=== PATIENT | male | born 1940 | race Caucasian/White ===

== ENCOUNTER 2019-08-28 09:19 | Outpatient (CLI) | payer MEDICARE, SELFPAY ==
--- NOTE | 2019-08-28 10:30 | NEURO_ITS ---
Patient Number: [id number] Impression: # Complains of left lower extremity cramps and numbness. History of back surgery 5 years ago. 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 # Clinical correlation recommended; Findings suggestive of chronic problem. Nerve Conduction Studies Anti Sensory Summary Table Stim Site NR Peak (ms) P-T Amp (?V) Site1 Site2 Delta-P (ms) Dist (cm) Obed (m/s) Left Sup Fibular Anti Sensory (Ant Lat Mall) 14 cm 3.9 15.1 14 cm Ant Lat Mall 3.9 16.0 41 Right Sup Fibular Anti Sensory (Ant Lat Mall) 14 cm 5.8 9.3 14 cm Ant Lat Mall 5.8 16.0 28 Left Sural Anti Sensory (Lat Mall) Calf 4.6 14.7 Calf Lat Mall 5.7 16.0 35 Right Sural Anti Sensory (Lat Mall) Calf 5.3 13.9 Calf Lat Mall 5.3 16.0 30 Motor Summary Table Stim Site NR Onset (ms) O-P Amp (mV) Site1 Site2 Delta-0 (ms) Dist (cm) Obed (m/s) Left Peroneal Motor (Vastus Med) Ankle 5.3 1.4 Popit Ankle 9.5 38.0 40 Popit 14.8 1.4 Right Peroneal Motor (Vastus Med) Ankle 5.5 2.1 Popit Ankle 10.3 39.0 38 Popit 15.8 1.5 Left Tibial Motor (Abd Kwok Brev) Ankle 5.5 0.3 Knee Ankle 10.4 42.0 40 Knee 15.9 0.2 Right Tibial Motor (Abd Kwok Brev) Ankle 5.8 1.1 Knee Ankle 9.8 41.0 42 Knee 15.6 1.3 F Wave Studies NR F-Lat (ms) L-R F-Lat (ms) Left Peroneal (Mrkrs) (EDB) 47.07 0.35 Right Peroneal (Mrkrs) (EDB) 46.72 0.35 Left Tibial (Mrkrs) (Abd Hallucis) 46.88 0.70 Right Tibial (Mrkrs) (Abd Hallucis) 46.18 0.70 EMG Side Muscle Nerve Root Ins Act Fibs Amp Dur Recrt Comment Right AntTibialis Dp Br Fibular L4-5 Nml Nml Nml >12ms Reduced Right Gastroc Tibial S1-2 Nml Nml Nml >12ms Reduced Right Fibularis Long Sup Br Fibular L5-S1 Nml Nml Nml Nml Nml Right Flex Dig Long Tibial L5-S2 Nml Nml Nml Nml Nml Right Ext Dig Brev Dp Br Fibular L5, S1 Nml Nml Nml >12ms Reduced Left AntTibialis Dp Br Fibular L4-5 Nml Nml Nml >12ms Reduced Left Gastroc Tibial S1-2 Nml Nml Nml >12ms Reduced Left Fibularis Long Sup Br Fibular L5-S1 Nml Nml Nml >12ms Reduced Left Flex Dig Long Tibial L5-S2 Nml Nml Nml Nml Nml Left Ext Dig Brev Dp Br Fibular L5, S1 Nml Nml Nml >12ms Reduced Right QuadratusFem QuadFemoris L4-5, S1 Nml Nml Nml >12ms Reduced Left QuadratusFem QuadFemoris L4-5, S1 Nml Nml Nml >12ms Reduced MTDD
== END 2019-08-28 09:20 | disposition home or self-care (01) ==
PROVIDERS: PCP Internal Medicine; Visit Provider Internal Medicine
DX: R20.2 Paresthesia of skin (principal); R94.131 Abnormal electromyogram [EMG]
CPT/HCPCS: 95886; 95910

== ENCOUNTER 2020-09-07 10:20 | Outpatient (CLI) | payer MEDICARE, SELFPAY ==
--- NOTE | ~2020-09-07 | XR_ITS ---
[id number] DATE: 09/07/2020 10:40 INDICATION: Left upper rib pain after fall TECHNIQUE: PA chest. 3 views of the left ribs. COMPARISON: 03/25/2012 two-view chest FINDINGS: There is diffuse osteopenia. No recent rib fracture is evident. No bone destruction is detected. There is scoliosis and degenerative spurring of the thoracic and lumbar spine. IMPRESSION: Osteopenia; no apparent recent left rib fracture Reviewed, dictated and finalized at [facility]. Reviewed, dictated and finalized at [facility].
== END 2020-09-07 10:21 | disposition home or self-care (01) ==
LOC: ANHIMG 10:26
PROVIDERS: PCP Internal Medicine; Visit Provider Internal Medicine
DX: R07.81 Pleurodynia (principal); M85.88 Other specified disorders of bone density and structure, other site; M47.815 Spondylosis without myelopathy or radiculopathy, thoracolumbar region
CPT/HCPCS: 71101

== ENCOUNTER 2021-09-13 14:33 | Outpatient (RCR) | payer MEDICARE, SELFPAY ==
[2021-09-13] MEDS: ACETAMINOPHEN 325 MG TABLET 650 MG PO (14:56)
[2021-09-13] MEDS: diphenhydrAMINE HCl CAP 25 MG CAPSULE PO (14:56)
[2021-09-13] MEDS: FAMOTIDINE 20 MG TABLET PO (14:57)
[2021-09-13 14:59] VITALS: BP 149/73; PULSE 62; RESP 18; TEMP 36.4; O2SAT 98
[2021-09-13] MEDS: BEBTELOVIMAB 175 MG/2 ML VIAL IV PUSH (15:19)
[2021-09-13 15:58] VITALS: BP 168/75; PULSE 64; RESP 16; O2SAT 99
== END 2021-09-13 16:00 ==
LOC: AMCINF 14:33
PROVIDERS: PCP Internal Medicine; Referring Provider Internal Medicine; Visit Provider Internal Medicine Hematology & Oncology
DX: U07.1 COVID-19 (principal); I10 Essential (primary) hypertension
CPT/HCPCS: A9270; M0222; Q0222

== ENCOUNTER 2022-03-27 18:56 | Emergency (ER) | payer MEDICARE, SELFPAY ==
[2022-03-27 19:08] VITALS: BP 171/93; PULSE 78; RESP 20; TEMP 36.4; O2SAT 100
--- NOTE | 2022-03-27 20:02 | ED.WOUNDLAC ---
HPI - Wound/Laceration General Chief Complaint: Wound/Laceration Stated Complaint: Right toe cut Time Seen by Provider: 03/27/22 20:02 Source: patient, RN notes reviewed and old records reviewed Mode of arrival: ambulatory Limitations: no limitations History of Present Illness HPI narrative: 82-year-old male presents to the [facility] with complaints of cutting his right 4th toe when he was cutting his toenails. Bleeding was uncontrolled. Patient is not on blood thinners. Last tetanus 7-8 years ago Onset (ago): minute(s) (just prior to arrival) Related Data Home Medications Medication Instructions Recorded Confirmed sildenafil 100 mg tablet mg 03/27/22 Allergies Allergy/AdvReac Type Severity Reaction Status Date / Time No Known Allergies Allergy Verified 02/14/22 10:33 Review of Systems Review of Systems: All systems reviewed & are unremarkable except as noted in HPI and below Constitutional: Constitutional: Reports no additional constitutional complaints Eyes: Eyes: Reports no additional eye complaints ENT: Reports system reviewed and no additional complaints, except as documented Cardiovascular: Cardiovascular: Reports no additional cardiovascular complaints, Denies chest pain and Denies dyspnea Respiratory: Respiratory: Reports no additional respiratory complaints, Denies chest congestion, Denies cough and Denies dyspnea Gastrointestinal: Gastrointestinal: Reports no additional gastrointestinal complaints Musculoskeletal: Musculoskeletal: Reports no additional musculoskeletal complaints Integumentary/Breasts: Skin/Breast: Reports as per HPI Neurologic: Reports system reviewed and no additional complaints, except as documented Psychiatric: Psychiatric: Reports no additional psychiatric complaints Allergic/Immunologic: Allergic/Immunologic: Reports no additional allergic/immunologic complaints ON LICENSE OF [facility] Family History Family History Mother Family history of Alzheimer's disease, Onset Age: 90 Patient's mother is Father Patient's father is Social History Social History Smoking packs per day: 0.5 Smoking cigarettes per day: 10.0 Years smoked: 15 Smoking pack-years: 7.50 Smoking status: Former smoker Second hand tobacco smoke exposure: No Smoking end date: 04/30/71 Alcohol intake: current Lack of Transportation: No Lack of Food: Never True Current Housing: I Have Housing Concerned About Future Housing: No Difficulty Paying Gas/Electric Bills: No Difficulty Paying for Meds: No Currently Unemployed: No Education: High School Diploma/GED Difficulty w/ Childcare or Family Care: No Comments At the time of my signature, I reviewed and agree with the nursing past medical, surgical, social, and family history. There is no relevant family history pertinent to the patient complaint. Exam Const: General: cooperative, healthy appearing, comfortable, no acute distress, well developed, alert and average body habitus Nutritional Appearance: well nourished Orientation/consciousness: patient oriented x3 Limitations: no limitations HENMT: Head: normal to inspection Ears: hearing grossly normal bilaterally Face/Nose/Sinus: Normal external nose present, Normal nares present, Normal nasal mucous membranes and turbinates present and normal facial exam Face and sinus: normal facial exam Mouth: Yes Normal oral and palatal mucosa present, Yes lip normal and Yes moist mucous membranes Throat: posterior oropharynx normal and uvula midline Eyes: General: appearance normal, both eyes and all related structures Alignment and Position: alignment normal Periorbital: periorbital findings normal Conjunctivae: conjunctivae normal Pupils: Equal, round and reactive pupils present EOM: EOMs intact bilaterally Neck: Neck: normal visu
[2022-03-28] MEDS: TETANUS,DIPHTHERIA,AC PERTUSSIS ADULT (0.5 ML) BOOSTRIX IM (12:25)
== END 2022-03-27 20:26 | disposition home or self-care (01) ==
PROVIDERS: Emergency Provider Nurse Practitioner; PCP Internal Medicine
DX: S91.104A Unspecified open wound of right lesser toe(s) without damage to nail, initial encounter (principal); X58.XXXA Exposure to other specified factors, initial encounter; Z23 Encounter for immunization; I10 Essential (primary) hypertension; N40.0 Benign prostatic hyperplasia without lower urinary tract symptoms
CPT/HCPCS: 90471; 90715; 99212; G0463

== ENCOUNTER 2023-04-06 09:31 | Observation (INO) | payer MEDICARE, SELFPAY ==
[2023-04-06] VITALS (34 sets, daily range): BP systolic 99–178; BP diastolic 63–111; PULSE 60–81; RESP 12–20; TEMP 36.2–36.8; O2SAT 96–100; BMI 27.6
--- NOTE | ~2023-04-06 | CT_ITS ---
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 Elevated d-dimer. TECHNIQUE: Computed tomographic angiography (CTA) of the chest was performed with 100 mL Omnipaque-35 0 intravenous contrast. The dose-length product was 404.60 mGy-cm. Maximum intensity projection 3D-re constructions of the aorta and other arteries were constructed by the technologist on a separate work station. Automated exposure control and iterative reconstruction technique were employed. COMPARISON: None. FINDINGS: Mild cardiomegaly. No significant pleural or pericardial effusion. Study is technically ann-marie quate without evidence for pulmonary embolism. Lower lobe subsegmental arteries limited by motion art ifact. Calcified granuloma left lower lobe. No evidence for aortic aneurysm or dissection. There is a therosclerosis. There are multiple liver cysts. There are gallstones. No focal airspace consolidation . No endobronchial lesions. Mild emphysema. Moderate thoracic spondylosis. IMPRESSION: 1. No evidence for pulmonary embolism. No acute cardiopulmonary disease. Reviewed, dictated and finalized at [facility]. BUILDER
--- NOTE | ~2023-04-06 | CT_ITS ---
EXAMINATION: CT brain wo con DATE: 04/06/2023 11:45 INDICATION: Syncope. Weakness. TECHNIQUE: Computed tomography (CT) of the head was performed without intravenous contrast. The dose- length product was 681.00 mGy-cm. Automated exposure control and iterative reconstruction technique w ere employed. COMPARISON: None FINDINGS: Generalized atrophy. There are scattered moderate periventricular and subcortical white mat ter changes, most likely related to small vessel ischemic disease (microangiopathy). There are chroni c bilateral lacunar infarctions of the subinsular white matter. There is intracranial atherosclerosis . No acute infarction, hemorrhage, mass or mass effect. IMPRESSION: 1. No acute intracranial abnormality. 2: Chronic bilateral lacunar infarctions. 3: Chronic age-related findings. Reviewed, dictated and finalized at location [facility]. ICAL PROOFREADER
--- NOTE | ~2023-04-06 | XR_ITS ---
EXAMINATION: XR chest 2V 04/06/2023 11:56 INDICATION: Transient alteration of awareness PROCEDURE: 2 view chest COMPARISON: Comparison to multiple prior studies sequentially, with oldest reviewed study dated 11/07. FINDINGS: The lungs are clear. The cardiomediastinal silhouette is within normal limits. There are no pleural effusions. There is no pneumothorax suspected. There is atherosclerosis of the aorta. Th e lungs are hyperinflated which is consistent with, but not diagnostic of chronic obstructive pulmona ry disease. IMPRESSION: 1: NO ACUTE CARDIOPULMONARY DISEASE. Reviewed, dictated and finalized at location [facility]. RVISOR SHIPFITTERS
--- NOTE | 2023-04-06 09:54 | ECG_ITS ---
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
[2023-04-06 10:30] LABS: Basophils Percent Auto 0.4 % (0.2-1.2); Eosinophils Absolute Auto 0.1 K/mm3 (0-0.3); Eosinophils Percent Auto 0.6 % (0-4.4); Hematocrit 42.3 % (42.0-52.0); Hemoglobin 13.7 g/dL (14.0-18.0); Immature Granulocyte Absolute 0.03 K/mm3 (0.00-0.031); Immature Granulocyte Percent A 0.3 % (0-0.5); Lymphocytes Absolute Auto 0.86 K/mm3 (0.9-3.2); Lymphocytes Percent Auto 9.3 % (18.3-44.2); Mean Corpuscular HGB Conc 32.4 g/dl (32-36); Mean Corpuscular Hemoglobin 29.8 pg (26-34); Mean Corpuscular Volume 92.2 fl (80-100); Mean Platelet Volume 9.3 fl (7.4-10.4); Monocytes Absolute Auto 0.6 K/mm3 (0.1-0.6); Monocytes Percent Auto 6.4 % (2.6-8.5); Neutrophils Absolute Auto 7.7 K/mm3 (1.3-6.7); Platelet Count Result 215 k/mm3 (150-375); Red Blood Count 4.59 M/mm3 (4.6-6.20); White Blood Count 9.3 K/mm3 (4.5-10.0)
[2023-04-06 10:39] LABS: Alanine Aminotransferase 19 U/L (6-50); Albumin Level 4.2 g/dL (3.5-5.1); Alkaline Phosphatase 58 U/L (38-126); Anion Gap 7 mmol/L (8-16); Aspartate Amino Transferase 23 U/L (17-59); Bilirubin,Total 0.8 mg/dL (0.2-1.3); Blood Urea Nitrogen 17 mg/dL (9-20); Calcium 9.1 mg/dL (8.4-10.2); Carbon Dioxide 26 mmol/L (22-30); Chloride 104 mmol/L (98-107); Estimated CRCL calculation 59 ml/min; Estimated Glomerular Filt Rate > 60; Glucose 118 mg/dL (65-110); Sodium 137 mmol/L (137-145)
--- NOTE | 2023-04-06 11:12 | ED.SYNCOPE ---
HPI - Syncope General Chief Complaint: Syncope <Roger Shell APRN - Last Filed: 05/02/23 13:47> Stated Complaint: syncopal episode <Roger Shell APRN - Last Filed: 05/02/23 13:47> Time Seen by Provider: 04/06/23 10:55 <Roger Shell APRN - Last Filed: 05/02/23 13:47> History of Present Illness HPI narrative: 83 y/o male presents after having a near syncopal episode today. patient states he was carrying dishes in the kitchen when his legs felt week and he fell to his knees. patient's states his upper extremities were shaking but he was communicating. ems came to evaluate the patient and he had low bp after walking to the bathroom. patient denied chest pain, sob, dizziness prior or during episode. patient denies hx of heart issues. patient states he has a hx of htn. 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 no other complaints. <Roger Shell APRN - Last Filed: 05/02/23 13:47> Onset (ago): hour(s) (2) <Roger Shell APRN - Last Filed: 05/02/23 13:47> Witnessed: Yes - by Bystander <Roger Shell APRN - Last Filed: 05/02/23 13:47> Injuries sustained associated with event: none <Roger Shell APRN - Last Filed: 05/02/23 13:47> Current symptoms: back to baseline <Roger Shell APRN - Last Filed: 05/02/23 13:47> Related Data Home Medications: Home Medications Medication Instructions Recorded Confirmed sildenafil 100 mg tablet 100 mg PO DAILY PRN Sexual Activity 03/27/22 04/06/23 <Roger Shell APRN - Last Filed: 05/02/23 13:47> Allergies/Adverse Reactions: Allergies Allergy/AdvReac Type Severity Reaction Status Date / Time No Known Allergies Allergy Verified 04/10/23 13:50 <Roger Shell APRN - Last Filed: 05/02/23 13:47> Review of Systems Review of Systems: All systems reviewed & are unremarkable except as noted in HPI and below <Roger GLENNY Shell Last Filed: 05/02/23 13:47> Constitutional: Constitutional: Reports weakness <Roger Shell APRN - Last Filed: 05/02/23 13:47> Neurologic: Reports syncope <Roger Shell APR Last Filed: 05/02/23 13:47> PMFSH Past Medical History Medical History: Medical History (Updated 04/09/23 @ 09:25 by Mohan Flynn MD) Essential (primary) hypertension <Roger Shell APRN Last Filed: 05/02/23 13:47> Family History Family History: Family History Mother Family history of Alzheimer's disease, Onset Age: 90 Patient's mother is Father Patient's father is <Roger Shell APR Last Filed: 05/02/23 13:47> Social History Social History: Social History Smoking packs per day: 0.5 Smoking cigarettes per day: 10.0 Years smoked: 10 Smoking pack-years: 5.00 Smoking status: Former smoker Tobacco type: cigarettes Second hand tobacco smoke exposure: No Smoking end date: 04/30/71 Alcohol intake: current Drinks per week: 3 Substance use: never Do You Feel Safe in your Home?: Yes Lack of Transportation: No Lack of Food: Never True Current Housing: I Have Housing Concerned About Future Housing: No Difficulty Paying Gas/Electric Bills: No Difficulty Paying for Meds: No Currently Unemployed: No Education: High School Diploma/GED Difficulty w/ Childcare or Family Care: No Spiritual care concerns: No <Roger Shell APRN Last Filed: 05/02/23 13:47> Exam Const: General: healthy appearing and no acute distress <Roger Shell APRN Last Filed: 05/02/23 13:47> Nutritional Appearance: well nourished <Roger Shell APRN Last Filed: 05/02/23 13:47> Orientation/consciousness: patient oriented x3 <Roger Shell APRN - Last Filed: 05/02/23 13:47> Limitations: no limitations <Roger Shell APRN - Last Filed: 05/02/23 13:47> HENMT: Head: normal to inspection
[2023-04-06] MEDS: SODIUM CHLORIDE 0.9% IV 1,000 ML 999 ML IV CONT (12:12)
[2023-04-06 12:22] LABS: Magnesium 2.1 mg/dL (1.6-2.3)
[2023-04-06 12:25] LABS: INR 1.1; Prothrombin Time 14.8 Seconds (11.1-14.7)
[2023-04-06 12:26] LABS: Partial Thromboplastin Time 37.2 SECONDS (22.3-36.8)
[2023-04-06 12:35] LABS: NT Pro B Type Natriuretic Pept 1170 pg/mL (19.9-100); Troponin I < 0.012 ng/mL (0.000-0.034)
[2023-04-06 12:40] LABS: Appearance Urine Turbid (Clear); Bacteria Urine None Seen /hpf; Bilirubin Urine 1+ (Negative); Blood Urine Negative (Negative); Color Urine Dark Yellow (Yellow); Glucose Urine UA Negative (Negative); Hyaline Casts Urine Present /lpf; Ketones Urine Trace mg/dL (Negative); Leukocyte Esterase Ur Negative LEU/UL (Negative); Need Manual Microscopic Reviewed; Nitrate Urine Negative (Negative); Protein Urine 1+ mg/dL (Negative); Specific Grav Ur 1.024 (1.001-1.035); Squamous Epithelial Cell Urine Few /hpf (Few); WBC Urine 0-5 /hpf
[2023-04-06 12:46] LABS: D Dimer 0.67 ug/mL (<0.48)
[2023-04-06 12:53] LABS: Add Urine Microscopic? YES
[2023-04-06] MEDS: LACTATED RINGERS 1,000 ML 75 ML IV CONT (14:18)
[2023-04-06 15:38] LABS: Troponin I < 0.012 ng/mL (0.000-0.034)
--- NOTE | 2023-04-06 19:12 | PC.NURSE ---
Report received from MIL Browning. Assumed care of patient at this time.
--- NOTE | 2023-04-06 20:13 | ADMGEN ---
This patient, Will Ramirez, was admitted to Medical Room 247-. Patient/family oriented to hospital policies and general routines including ID bracelet, bed and alarms, visiting hours, pain management, procedures, bathroom and other care routines, personal items, smoking policy, room service/diet, and visiting hours. Information on how to activate the Rapid Response Team has been discussed. Patient/Family are encouraged to report perceived risks to care and to ask questions if they do not understand what they are told or what they should do.
--- NOTE | 2023-04-06 20:23 | PM.IMHP ---
H&P: HPI History of Present Illness Date/Time: 04/06/23 20:23 Chief Complaint: Near-syncope Narrative: This is an 83-year-old male with past medical history significant hypertension. Patient comes to the emergency room after having an episode of bilateral lower extremity weakness and near-syncope when he landed on his knees no loss of consciousness, patient had been in his usual state of health denies any nausea vomiting diarrhea abdominal pain no chest pain no palpitations no headaches no vision changes no cough no sputum production no fevers no rigors no chills no focal weakness no sensorimotor deficit. In emergency room patient was rule out for acute pulmonary embolism and preliminary workup has been essentially nonrevealing. Patient placed in observation. EXAMINATION: CT brain wo con DATE: 04/06/2023 11:45 INDICATION: Syncope. Weakness. TECHNIQUE: Computed tomography (CT) of the head was performed without intravenous contrast. The dose-length product was 681.00 mGy-cm. Automated exposure control and iterative reconstruction technique were employed. COMPARISON: None FINDINGS: Generalized atrophy. There are scattered moderate periventricular and subcortical white matter changes, most likely related to small vessel ischemic disease (microangiopathy). There are chronic bilateral lacunar infarctions of the subinsular white matter. There is intracranial atherosclerosis. No acute infarction, hemorrhage, mass or mass effect. IMPRESSION: 1. No acute intracranial abnormality. 2: Chronic bilateral lacunar infarctions. 3: Chronic age-related findings. EXAMINATION: XR chest 2V 04/06/2023 11:56 INDICATION: Transient alteration of awareness PROCEDURE:? 2 view chest COMPARISON: Comparison to multiple prior studies sequentially, with oldest reviewed study dated? 11/07/2004. FINDINGS: The lungs are clear.? The cardiomediastinal silhouette is within normal limits.? There are no pleural effusions.? There is no pneumothorax suspected.? There is atherosclerosis of the aorta. The lungs are hyperinflated which is consistent with, but not diagnostic of chronic obstructive pulmonary disease. IMPRESSION: 1:? NO ACUTE CARDIOPULMONARY DISEASE. 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 Elevated d-dimer. TECHNIQUE: Computed tomographic angiography (CTA) of the chest was performed with 100 mL Omnipaque-350 intravenous contrast. The dose-length product was 404.60 mGy-cm. Maximum intensity projection 3D-reconstructions of the aorta and other arteries were constructed by the technologist on a separate workstation. Automated exposure control and iterative reconstruction technique were employed. COMPARISON: None. FINDINGS: Mild cardiomegaly. No significant pleural or pericardial effusion. Study is technically adequate without evidence for pulmonary embolism. Lower lobe subsegmental arteries limited by motion artifact. Calcified granuloma left lower lobe. No evidence for aortic aneurysm or dissection. There is atherosclerosis. There are multiple liver cysts. There are gallstones. No focal airspace consolidation. No endobronchial lesions. Mild emphysema. Moderate thoracic spondylosis. IMPRESSION: 1. No evidence for pulmonary embolism. No acute cardiopulmonary disease. Review of Systems Review of Systems: Near-syncope episode Constitutional: Constitutional: Denies chills, Denies fatigue, Denies fever(s), Denies frequent falls, Denies malaise and Denies weakness Eyes: Eyes: Denies change in vision ENT: Denies dysphagia, Denies vertigo, Denies dizziness and Denies odynophagia Cardiovascular: Cardiovascular: Denies chest pain, Denies leg edema, Reports lightheadedness, Denies radiating jaw, neck or arm pain and Denies palpitations Respiratory: Respiratory: Denies cough and Denies excessive phlegm production Gastrointestinal: Gastrointestinal: Denies abdominal pain, Denies dyspepsia, Josue
[2023-04-07] VITALS (12 sets, daily range): BP systolic 148–180; BP diastolic 74–96; PULSE 64–78; RESP 16–18; TEMP 36.4–36.9; O2SAT 96–98
--- NOTE | 2023-04-07 | ECHO_ITS ---
Patient Info Name: Will Ramirez Age: 83 years : 1940 Gender: Male Ht: 67 in Wt: 180 lbs BSA: 1.98 m2 HR: 74 bpm BP: 165 / 74 mmHg Heart Rhythm: Sinus Arrhythmia Technical Quality: Good Exam Date: 04/07/2023 10:13 AM Exam Location: Echo Lab Patient Status: Inpatient Admit Date: 04/06/2023 Staff Ordering Physician: Tera Villatoro MD Hat Forming Machine Feeder: Sharifa Mayberry RDCS Attending Provider: Mariza Lerner MD Referring Physician: Irving JERNIGAN; Exam Type: CA echo doppler color flow Study Info Indications - NEAR SYNCOPE Complete two-dimensional, color flow and Doppler transthoracic echocardiogram is performed. Summary 1. Complete two-dimensional, color flow and Doppler transthoracic echocardiogram is performed. Recommendations * Borderline LV enlargement, mild LVH, borderline LV systolic function, ejection fraction about 50%. Diastolic dysfunction is present. Mild biatrial enlargement. Normal mitral valve structure, mild MR. Aortic valve is not well visualized, appears mildly calcified, moderate aortic stenosis by Doppler, maximum velocity 2.2 m/sec, mean gradient 16 mmHg, LYNETTE 1.2 cm2. Mild aortic regurgitation. Trace TR, RVSP 22 mmHg. May consider further assessment of aortic valve stenosis if clinically appropriate. Left Ventricle Left ventricular chamber dimension is mildly enlarged. Left ventricular systolic function is mildly reduced, estimated at 45-50%. There is mildly increased left ventricular wall thickness. The left ventricular diastolic function is abnormal. E/e' 20.9 is elevated. Right Ventricle Right ventricular chamber dimension is normal. Right ventricular systolic function is normal. Left Atria Left atrial chamber dimension is mildly enlarged. Right Atria Right atrial chamber dimension is mildly enlarged. Aortic Valve The aortic valve is not well visualized. There is mild aortic valve sclerosis. There is mild aortic valve regurgitation. There is mild aortic valve calcification. Pulmonic Valve The pulmonic valve is normal. Mitral Valve The mitral valve has normal leaflets. There is mild mitral valve regurgitation. Tricuspid Valve The tricuspid valve leaflets are normal. There is trace tricuspid valve regurgitation. Pericardium/Pleural The pericardium appears epicardial fat pad. There is no pericardial effusion. Inferior Vena Cava Normal inferior vena cava with >50% collapse upon inspiration consistent with normal right atrial pressure, 10 mmHg. Aorta The aortic root size at the sinus of Valsalva is normal. Left Ventricular Outflow Tract Name Value Normal LVOT 2D LVOT Diameter 2.0 cm LVOT Doppler LVOT Peak Gradient 1 mmHg LVOT Mean Gradient 1 mmHg LVOT VTI 18 cm LVOT VTI/AV VTI Ratio 0.3 LVOT Stroke Volume 60 ml LVOT CO 2.8 l/min LVOT CI 1.4 l/min/m2 Pulmonic Valve Name Value Normal
[2023-04-07 05:51] LABS: Basophils Absolute Auto 0.1 K/mm3 (0.0-0.1); Basophils Percent Auto 0.6 % (0.2-1.2); Eosinophils Absolute Auto 0.1 K/mm3 (0-0.3); Eosinophils Percent Auto 0.9 % (0-4.4); Hematocrit 38.6 % (42.0-52.0); Hemoglobin 12.7 g/dL (14.0-18.0); Immature Granulocyte Absolute 0.03 K/mm3 (0.00-0.031); Immature Granulocyte Percent A 0.3 % (0-0.5); Lymphocytes Absolute Auto 1.53 K/mm3 (0.9-3.2); Lymphocytes Percent Auto 17.5 % (18.3-44.2); Mean Corpuscular HGB Conc 32.9 g/dl (32-36); Mean Corpuscular Hemoglobin 30.1 pg (26-34); Mean Corpuscular Volume 91.5 fl (80-100); Mean Platelet Volume 9.9 fl (7.4-10.4); Monocytes Absolute Auto 0.8 K/mm3 (0.1-0.6); Monocytes Percent Auto 8.6 % (2.6-8.5); Neutrophils Absolute Auto 6.3 K/mm3 (1.3-6.7); Neutrophils Percent Auto 72.1 % (45.5-73.1); Platelet Count Result 207 k/mm3 (150-375); Red Blood Count 4.22 M/mm3 (4.6-6.20); Red Cell Distribution Width 13.8 % (11.5-14.5); White Blood Count 8.7 K/mm3 (4.5-10.0)
[2023-04-07 06:10] LABS: Anion Gap 6 mmol/L (8-16); Blood Urea Nitrogen 12 mg/dL (9-20); Calcium 8.5 mg/dL (8.4-10.2); Carbon Dioxide 25 mmol/L (22-30); Chloride 105 mmol/L (98-107); Estimated CRCL calculation 67 ml/min; Estimated Glomerular Filt Rate > 60; Glucose 96 mg/dL (65-110); Potassium 3.6 mmol/L (3.4-5.0); Sodium 136 mmol/L (137-145)
[2023-04-07] MEDS: atenoloL 50 MG TABLET PO (09:20)
[2023-04-07] MEDS: ENOXAPARIN 40 MG/0.4 ML SYRINGE SUB-Q (09:21)
[2023-04-07] MEDS: TERAZOSIN HCL 5 MG CAPSULE 10 MG PO (09:21)
[2023-04-07] MEDS: DUTASTERIDE 0.5 MG CAPSULE PO (09:21)
--- NOTE | 2023-04-07 14:25 | PM.IMPN ---
Progress Note: A&P Assessment and Plan (1) Near syncope: Code(s): R55 - Syncope and collapse Status: Acute Assessment and Plan: CT brain was negative CXR showed possible COPD, but no acute process. CTA PE protocol was negative. ECHO was abnormal, cardiology consulted for input and recommendations appreciated. continue tele (2) Neuropathy: Code(s): G62.9 - Polyneuropathy, unspecified Status: Chronic Assessment and Plan: Unchanged (3) Essential hypertension: Code(s): I10 - Essential (primary) hypertension Status: Chronic Assessment and Plan: Continue atenolol have been elevated, hydralazine 10 mg IV Q8 prn as needed (4) Low vitamin B12 level: Code(s): E53.8 - Deficiency of other specified B group vitamins Status: Acute Assessment and Plan: Follow-up in outpatient setting (5) Malignant neoplasm of bladder, unspecified: Code(s): C67.9 - Malignant neoplasm of bladder, unspecified Status: Acute Assessment and Plan: Follow-up in outpatient setting Subjective Date/time seen: 04/07/23 14:25 Interval history: Patient is an 83 YO male with PMH significant for hypertension. Patient admitted from the emergency room after having an episode of bilateral lower extremity weakness and near-syncope when he landed on his knees with no loss of consciousness. He was carrying a bowl of cereal into the kitchen. There was no precipitating event or symptoms. He did not take his Viagra . Patient has been in his usual state of health, denies any nausea/vomiting/diarrhea or abdominal pain. No chest pain, palpitations, headaches, vision changes or viral symptoms. He does not check his BP at home. CT brain was negative, CXR showed possible COPD, but no acute process. CTA PE protocol was negative. ECHO was abnormal, cardiology consulted for input and recommendations appreciated. BP's have been elevated since admission, will continue to monitor. Exam Narrative: GENERAL: Well nourished, no acute distress, appears stated age. HEAD: Normocephalic, atraumatic. EYES: PERRLA and EOMI. NECK: Supple. LUNGS: Clear to auscultation bilaterally. No respiratory distress. HEART: RRR, no murmurs. ABDOMEN: Soft, nontender, nondistended. Non-tender to palpation. EXTREMITIES: No edema. SKIN: Warm, dry, no rash. NEURO: A&O x3, no cranial defects. PSYCH: Normal mood and affect. Pleasant & cooperative. Objective Data Vital Signs Vital Signs: Vital Signs - 24 hr 04/06/23 14:46 04/06/23 15:16 04/06/23 15:31 Temperature 98.3 F 98.0 F Pulse Rate 67 66 67 Respiratory Rate 14 16 13 Blood Pressure 151/71 H 155/82 H 169/75 H Pulse Oximetry 100 100 98 Oxygen Delivery 04/06/23 16:16 04/06/23 16:46 04/06/23 17:01 Temperature 97.9 F 98.0 F Pulse Rate 60 64 67 Respiratory Rate 14 14 16 Blood Pressure 173/85 H 162/78 H 153/86 H Pulse Oximetry 100 98 98 Oxygen Delivery 04/06/23 17:31 04/06/23 17:46 04/06/23 18:17 Temperature Pulse Rate 64 64 63 Respiratory Rate 16 13 15 Blood Pressure 176/74 H 163/83 H 161/80 H Pulse Oximetry 99 98 99 Oxygen Delivery 04/06/23 18:30 04/06/23 18:31 04/06/23 18:48 Temperature Pulse Rate 66 67 67 Respiratory Rate 14 16 12 Blood Pressure 170/79 H Pulse Oximetry 98 Oxygen Delivery 04/06/23 19:04 04/06/23 19:16 04/06/23 19:20 Temperature Pulse Rate 66 66 66 Respiratory Rate 12 13 14 Blood Pressure 158/81 H Pulse Oximetry Oxygen Delivery 04/06/23 19:30 04/06/23 19:31 04/06/23 19:45 Temperature Pulse Rate 66 65 68 Respiratory Rate 15 15 14 Blood Pressure 166/83 H 166/83 H Pulse Oximetry 98 Oxygen Delivery 04/06/23 20:50 04/06/23 20:50 04/06/23 20:51 Temperature 98.0 F Pulse Rate 65 72 Respiratory Rate 18 Blood Pressure 178/68 H 168/63 H Pulse Oximetry 99 Oxygen Delivery 04/06/23 20:51 04/06/23 20:12 04/06/23 20:30
[2023-04-07] MEDS: hydrALAZINE HCL 20 MG/ML VIAL 10 MG IV PUSH (18:53)
[2023-04-08] VITALS (12 sets, daily range): BP systolic 132–190; BP diastolic 73–100; PULSE 64–78; RESP 16–18; TEMP 36.5–36.9; O2SAT 97–99
[2023-04-08 08:18] LABS: Hematocrit 41.2 % (42.0-52.0); Hemoglobin 13.5 g/dL (14.0-18.0); Mean Corpuscular HGB Conc 32.8 g/dl (32-36); Mean Corpuscular Hemoglobin 29.9 pg (26-34); Mean Corpuscular Volume 91.2 fl (80-100); Mean Platelet Volume 9.8 fl (7.4-10.4); Platelet Count Result 217 k/mm3 (150-375); Red Blood Count 4.52 M/mm3 (4.6-6.20); White Blood Count 8.3 K/mm3 (4.5-10.0)
[2023-04-08] MEDS: atenoloL 50 MG TABLET PO (08:27)
[2023-04-08] MEDS: DUTASTERIDE 0.5 MG CAPSULE PO (08:27)
[2023-04-08] MEDS: TERAZOSIN HCL 5 MG CAPSULE 10 MG PO (08:27)
[2023-04-08] MEDS: ENOXAPARIN 40 MG/0.4 ML SYRINGE SUB-Q (08:27)
[2023-04-08 08:31] LABS: Anion Gap 8 mmol/L (8-16); Blood Urea Nitrogen 14 mg/dL (9-20); Carbon Dioxide 25 mmol/L (22-30); Chloride 104 mmol/L (98-107); Estimated CRCL calculation 67 ml/min; Estimated Glomerular Filt Rate > 60; Glucose 110 mg/dL (65-110); Potassium 3.8 mmol/L (3.4-5.0); Sodium 137 mmol/L (137-145)
[2023-04-08] MEDS: ACETAMINOPHEN 500 MG TABLET 1000 MG PO (08:44)
--- NOTE | 2023-04-08 12:28 | PM.IMPN ---
Progress Note: A&P Assessment and Plan (1) Near syncope: Code(s): R55 - Syncope and collapse Status: Acute Assessment and Plan: CT brain was negative CXR showed possible COPD, but no acute process. CTA PE protocol was negative. ECHO was abnormal, cardiology consulted for input and recommendations appreciated. continue tele (2) Neuropathy: Code(s): G62.9 - Polyneuropathy, unspecified Status: Chronic Assessment and Plan: Unchanged (3) Essential hypertension: Code(s): I10 - Essential (primary) hypertension Status: Chronic Assessment and Plan: Continue atenolol have been elevated, hydralazine 10 mg IV Q8 prn as needed lisinopril 10 mg started today (4) Low vitamin B12 level: Code(s): E53.8 - Deficiency of other specified B group vitamins Status: Acute Assessment and Plan: Follow-up in outpatient setting (5) Malignant neoplasm of bladder, unspecified: Code(s): C67.9 - Malignant neoplasm of bladder, unspecified Status: Acute Assessment and Plan: Follow-up in outpatient setting Subjective Date/time seen: 04/08/23 12:28 Interval history: Patient is an 83 YO male with PMH significant for hypertension. Patient admitted from the emergency room after having an episode of bilateral lower extremity weakness and near-syncope when he landed on his knees with no loss of consciousness. He was carrying a bowl of cereal into the kitchen. There was no precipitating event or symptoms. He did not take his Viagra . Patient has been in his usual state of health, denies any nausea/vomiting/diarrhea or abdominal pain. No chest pain, palpitations, headaches, vision changes or viral symptoms. He does not check his BP at home. CT brain was negative, CXR showed possible COPD, but no acute process. CTA PE protocol was negative. ECHO was abnormal, cardiology consulted for input and recommendations appreciated. BP's have been elevated since admission, added on 10 mg lisinopril and will continue to monitor. Exam Narrative: GENERAL: Well nourished, no acute distress, appears stated age. HEAD: Normocephalic, atraumatic. EYES: PERRLA and EOMI. NECK: Supple. LUNGS: Clear to auscultation bilaterally. No respiratory distress. HEART: RRR, no murmurs. ABDOMEN: Soft, nontender, nondistended. Non-tender to palpation. EXTREMITIES: No edema. SKIN: Warm, dry, no rash. NEURO: A&O x3, no cranial defects. PSYCH: Normal mood and affect. Pleasant & cooperative. Objective Data Vital Signs Vital Signs: Vital Signs - 24 hr 04/07/23 14:00 04/07/23 16:03 04/07/23 18:50 Temperature 97.7 F Pulse Rate 64 64 Respiratory Rate 18 Blood Pressure 158/81 H 180/90 H Pulse Oximetry 98 Oxygen Delivery 04/07/23 20:01 04/07/23 20:00 04/07/23 20:00 Temperature 98.5 F Pulse Rate 73 72 73 Respiratory Rate 16 16 Blood Pressure 167/80 H Pulse Oximetry 98 98 Oxygen Delivery Room Air 04/08/23 00:00 04/08/23 04:08 04/08/23 04:00 Temperature 98.2 F Pulse Rate 71 64 69 Respiratory Rate 16 Blood Pressure 174/77 H Pulse Oximetry 97 Oxygen Delivery 04/08/23 08:27 04/08/23 08:25 Temperature Pulse Rate 68 68 Respiratory Rate Blood Pressure 190/100 H Pulse Oximetry Oxygen Delivery Intake/Output Intake/Output: Intake & Output 04/05/23 04/06/23 04/07/23 04/08/23 23:59 23:59 23:59 23:59 Intake Total 1000 1580 290 Output Total 200 900 Balance 800 680 290 Meds/Results Medications: Active Medications Generic Name Dose Route Start Last Admin Trade Name Freq PRN Reason Stop Dose Admin Acetaminophen 650 mg 04/08/23 08:32 Acetaminophen 325 Mg Tablet PO Q6H PRN Mild Pain (1-3) or Fever Atenolol 50 mg 04/07/23 09:00 04/08/23 08:27 Atenolol 50 Mg Tablet PO 50 mg DAILY DANNY Administration Dutasteride 0.5 mg 04/07/23 09:00 04/08/23 08:27 Dutasteride 0.5 Mg
[2023-04-08] MEDS: lisinopriL 10 MG TABLET PO (13:03)
--- NOTE | 2023-04-08 15:00 | PC.NURSE ---
Awaiting Cardiology consult. Renotified provider's exchange of consult order at 1500 04/08/23.
[2023-04-09] VITALS (8 sets, daily range): BP systolic 98–182; BP diastolic 56–88; PULSE 56–68; RESP 14–16; TEMP 36.8; O2SAT 99–100
[2023-04-09 08:25] LABS: Hematocrit 41.4 % (42.0-52.0); Hemoglobin 13.7 g/dL (14.0-18.0); Mean Corpuscular HGB Conc 33.1 g/dl (32-36); Mean Corpuscular Hemoglobin 30.2 pg (26-34); Mean Corpuscular Volume 91.4 fl (80-100); Mean Platelet Volume 9.6 fl (7.4-10.4); Platelet Count Result 205 k/mm3 (150-375); Red Blood Count 4.53 M/mm3 (4.6-6.20); Red Cell Distribution Width 13.9 % (11.5-14.5); White Blood Count 7.8 K/mm3 (4.5-10.0)
[2023-04-09] MEDS: ENOXAPARIN 40 MG/0.4 ML SYRINGE SUB-Q (08:32)
[2023-04-09] MEDS: TERAZOSIN HCL 5 MG CAPSULE 10 MG PO (08:32)
[2023-04-09] MEDS: DUTASTERIDE 0.5 MG CAPSULE PO (08:32)
[2023-04-09] MEDS: lisinopriL 10 MG TABLET PO (08:32)
[2023-04-09] MEDS: atenoloL 50 MG TABLET PO (08:32)
[2023-04-09 08:39] LABS: Anion Gap 5 mmol/L (8-16); Blood Urea Nitrogen 15 mg/dL (9-20); Calcium 8.8 mg/dL (8.4-10.2); Carbon Dioxide 27 mmol/L (22-30); Chloride 104 mmol/L (98-107); Estimated CRCL calculation 59 ml/min; Estimated Glomerular Filt Rate > 60; Glucose 102 mg/dL (65-110); Potassium 3.9 mmol/L (3.4-5.0); Sodium 136 mmol/L (137-145)
--- NOTE | 2023-04-09 09:19 | PM.CNCAR ---
Assessment and Plan Assessment and plan (1) Near syncope: Code(s): R55 - Syncope and collapse Status: Acute Assessment and Plan: His near syncopal episode likely has nothing to do with his aortic stenosis or echocardiogram. His presyncope very well may be related to alpha blockers including a combination of Avodart and terazosin causing orthostasis. Will check orthostatic blood pressure (2) Essential (primary) hypertension: Code(s): I10 - Essential (primary) hypertension Status: Acute Assessment and Plan: Generally above goal while here in the hospital. (3) Nonrheumatic aortic (valve) stenosis: Code(s): I35.0 - Nonrheumatic aortic (valve) stenosis Status: Acute Assessment and Plan: Moderate by echo. Will follow as an outpatient with serial echocardiograms History of Present Illness History of Present Illness Consult date/time: 04/09/23 09:19 Requesting physician: Mickie Alaniz APRN Consult reason: Other (Syncope, abnormal echo) Reason For Visit: Near Syncopal Episode Narrative: Reason for consultation: Syncope, abnormal echo Requesting provider: Mickie Alaniz Date of service 04/09/2023 History patient is a 83-year-old male who did not have known cardiac history is aware of. Does have high blood pressure. Came to hospital because of a presyncopal episode. He states that he was getting his breakfast together and about to sit down BILLY whenever he felt weak and he fell to the floor to his knees. He did not lose consciousness. He states that he had already been up and walking around for about 15 minutes or so prior to this episode. He does not recall any chest pain, shortness breath, syncope, paroxysmal nocturnal dyspnea, orthopnea, edema or palpitations. EMS was called and reportedly his blood pressure did drop about 15 points upon standing from what he can recall. Echocardiogram was ordered which showed low normal EF but with moderate aortic stenosis. Cardiology consultation was therefore requested Review of Systems Review of Systems: All systems reviewed & are unremarkable except as noted in HPI and below Constitutional: Constitutional: Reports no additional constitutional complaints Eyes: Eyes: Reports no additional eye complaints ENT: Denies epistaxis Cardiovascular: Cardiovascular: Denies chest pain Respiratory: Respiratory: Denies dyspnea Gastrointestinal: Gastrointestinal: Denies abdominal pain Genitourinary: Genitourinary: Denies hematuria Integumentary/Breasts: Skin/Breast: Denies rash Neurologic: Denies confusion Psychiatric: Psychiatric: Denies anxiety Endocrine: Endocrine: Denies excessive sweating Hematologic/Lymphatic: Hematologic/Lymphatic: Denies easy bleeding Allergic/Immunologic: Allergic/Immunologic: Denies GI upset with certain foods PMFSH Past Medical History Medical History (Updated 04/09/23 @ 09:25 by Mohan Flynn MD) Essential (primary) hypertension Family History Family History Mother Family history of Alzheimer's disease, Onset Age: 90 Patient's mother is Father Patient's father is Social History Social History Smoking packs per day: 0.5 Smoking cigarettes per day: 10.0 Years smoked: 10 Smoking pack-years: 5.00 Smoking status: Former smoker Tobacco type: cigarettes Second hand tobacco smoke exposure: No Smoking end date: 04/30/71 Alcohol intake: current Drinks per week: 3 Substance use: never Lack of Transportation: No Lack of Food: Never True Current Housing: I Have Housing Concerned About Future Housing: No Difficulty Paying Gas/Electric Bills: No Difficulty Paying for Meds: No Currently Unemployed: No Education: High School Diploma/GED Difficulty w/ Childcare or Family Care: No Spiritual care
--- NOTE | 2023-04-09 12:20 | PM.DS ---
DS: Admitting Diagnosis Discharge Date 04/09/23 Admitting Diagnosis near syncope DS: Discharge Diagnosis Discharge Diagnosis (1) Near syncope: Code(s): R55 - Syncope and collapse Status: Acute Assessment and Plan: CT brain was negative CXR showed possible COPD, but no acute process. CTA PE protocol was negative. ECHO was abnormal, cardiology consulted and will f/u outpatient orthostatics positive for hypotension Avodart d/c by cardiology as probable cause (2) Essential hypertension: Code(s): I10 - Essential (primary) hypertension Status: Chronic Assessment and Plan: continue home atenolol continue lisinopril at d/c monitor BP at home and f/u with PCP (3) Low vitamin B12 level: Code(s): E53.8 - Deficiency of other specified B group vitamins Status: Acute Assessment and Plan: Follow-up in outpatient setting (4) Malignant neoplasm of bladder, unspecified: Code(s): C67.9 - Malignant neoplasm of bladder, unspecified Status: Acute Assessment and Plan: Follow-up in outpatient setting DS: Summary Hospital Course Hospital Course: Patient is an 83 YO male with PMH significant for hypertension. Patient admitted from the emergency room after having an episode of bilateral lower extremity weakness and near-syncope when he landed on his knees with no loss of consciousness. He was carrying a bowl of cereal into the kitchen. There was no precipitating event or symptoms. He did not take his Viagra . Patient has been in his usual state of health, denies any nausea/vomiting/diarrhea or abdominal pain. No chest pain, palpitations, headaches, vision changes or viral symptoms. He does not check his BP at home. CT brain was negative, CXR showed possible COPD, but no acute process. CTA PE protocol was negative. ECHO was abnormal, cardiology consulted. Orthostatics positive for hypotension, Avodart d/c by cardiology as likely cause. BP's have been elevated since admission, added on 10 mg lisinopril and d/c on this and encourage to monitor at home. F/u with cardiology for serial ECHOs and PCP. Status at Discharge Functional status at discharge: independent ambulation Overall status at discharge: patient is back to baseline Time Spent with Patient Time attestation: Total time spent providing and/or coordinating discharge services: Exam Narrative: GENERAL: Well nourished, no acute distress, appears stated age. HEAD: Normocephalic, atraumatic. EYES: PERRLA and EOMI. NECK: Supple. LUNGS: Clear to auscultation bilaterally. No respiratory distress. HEART: RRR, no murmurs. ABDOMEN: Soft, nontender, nondistended. Non-tender to palpation. EXTREMITIES: No edema. SKIN: Warm, dry, no rash. NEURO: A&O x3, no cranial defects. PSYCH: Normal mood and affect. Pleasant & cooperative. DS: Data Data Completed and Pending Labs on day of discharge: Labs from last 24 hours 04/09/23 08:13 WBC 7.8 RBC 4.53 L Hgb 13.7 L Hct 41.4 L MCV 91.4 MCH 30.2 MCHC 33.1 RDW 13.9 Plt Count 205 MPV 9.6 Sodium 136 L Potassium 3.9 Chloride 104 Carbon Dioxide 27 Anion Gap 5 L BUN 15 Creatinine 0.80 Estim Creat Clear Calc 59 Estimated GFR > 60 Glucose 102 Calcium 8.8 Discharge Plan Discharge Attending physician on discharge: Braulio Ohara Consulting providers: Mohan Flynn Discharging Clinician: Mickie Alaniz Anticipated Discharge Date/Time: 04/09/23 11:55 Patient Disposition: Home, Self-Care Activity: as tolerated Diet: heart healthy Discharge Instructions: Get up slowly from bed or after sitting for a long time. If you are in bed, roll to your side and swing your legs over the edge of the bed and onto the floor. Push your body up to a sitting position. Wait for a while before you slowly stand up. Drink plenty of fluids. Choose water and other clear liquids. If you have kidney, heart, or liver disea
== END 2023-04-09 12:39 | disposition home or self-care (01) ==
LOC: ANHED 14:05 → ANH2MED 04-07 14:07 → ANH3MEDSUR 04-10 07:58
PROVIDERS: Emergency Medicine; Nurse Practitioner; Nurse Practitioner Family; Admitting Provider Internal Medicine; Emergency Provider Nurse Practitioner Family; PCP Internal Medicine; Visit Provider Internal Medicine
DX: R55 Syncope and collapse (principal); I11.0 Hypertensive heart disease with heart failure; E53.8 Deficiency of other specified B group vitamins; C67.9 Malignant neoplasm of bladder, unspecified; R79.89 Other specified abnormal findings of blood chemistry; G62.9 Polyneuropathy, unspecified; I08.3 Combined rheumatic disorders of mitral, aortic and tricuspid valves; R94.31 Abnormal electrocardiogram [ECG] [EKG]; F10.90 Alcohol use, unspecified, uncomplicated; Z87.891 Personal history of nicotine dependence; Z86.73 Personal history of transient ischemic attack (TIA), and cerebral infarction without residual deficits; Z79.899 Other long term (current) drug therapy
CPT/HCPCS: 36415; 70450; 71046; 71275; 80048; 80053; 81001; 83735; 83880; 84484; 85025; 85027; 85380; 85610; 85730; 93005; 93306; 96361; 96372; 96374; 99285; A9270; G0378; J0360; J1650; J7030; J7120; Q9967

== ENCOUNTER 2023-09-27 10:37 | Emergency (ER) | payer MEDICARE, SELFPAY ==
[2023-09-27 10:43] VITALS: BP 200/92; PULSE 61; RESP 14; TEMP 36.5; O2SAT 100
--- NOTE | 2023-09-27 10:43 | ED.GENADULT ---
HPI - General Adult General Chief complaint: Skin/Abscess/Foreign Body Stated complaint: right elbow bite swelling Time Seen by Provider: 09/27/23 10:43 Source: patient, RN notes reviewed and old records reviewed Mode of arrival: ambulatory Limitations: no limitations History of Present Illness HPI narrative: 83-year-old male to [facility] for complaint of erythematous area to right forearm for 4 days. Patient denies recent yd work or time in a basement. Patient denies allergies, fever, pain, drainage from wound. Patient hypertensive in triage. Patient reports history of hypertension. Related Data Home Medications Medication Instructions Recorded Confirmed sildenafil 100 mg tablet 100 mg PO DAILY PRN Sexual Activity 03/27/22 09/27/23 amlodipine 5 mg tablet 5 mg PO DAILY 09/27/23 09/27/23 Allergies Allergy/AdvReac Type Severity Reaction Status Date / Time No Known Allergies Allergy Verified 06/04/23 10:53 Review of Systems Review of Systems: All systems reviewed & are unremarkable except as noted in HPI and below Constitutional: Constitutional: Reports no additional constitutional complaints Eyes: Eyes: Reports no additional eye complaints ENT: Reports system reviewed and no additional complaints, except as documented Cardiovascular: Cardiovascular: Reports no additional cardiovascular complaints, Denies chest pain and Denies dyspnea Respiratory: Respiratory: Reports no additional respiratory complaints, Denies cough and Denies dyspnea Musculoskeletal: Musculoskeletal: Reports no additional musculoskeletal complaints Integumentary/Breasts: Skin/Breast: Reports as per HPI and Reports new lesions ( right forearm) Neurologic: Reports system reviewed and no additional complaints, except as documented Psychiatric: Psychiatric: Reports no additional psychiatric complaints [facility] Past Medical History Medical History Essential (primary) hypertension Family History Family History Mother Family history of Alzheimer's disease, Onset Age: 90 Patient's mother is Father Patient's father is Social History Social History Smoking packs per day: 0.5 Smoking cigarettes per day: 10.0 Years smoked: 10 Smoking pack-years: 5.00 Smoking status: Former smoker Tobacco type: cigarettes Second hand tobacco smoke exposure: No Smoking end date: 04/30/71 Alcohol intake: current Drinks per week: 3 Substance use: never Do You Feel Safe in your Home?: Yes Lack of Transportation: No Lack of Food: Never True Current Housing: I Have Housing Concerned About Future Housing: No Difficulty Paying Gas/Electric Bills: No Difficulty Paying for Meds: No Currently Unemployed: No Education: High School Diploma/GED Difficulty w/ Childcare or Family Care: No Spiritual care concerns: No Comments At the time of my signature, I reviewed and agree with the nursing past medical, surgical, social, and family history. There is no relevant family history pertinent to the patient complaint. Exam Const: General: cooperative, healthy appearing, comfortable, no acute distress, alert and well nourished Nutritional Appearance: well nourished Orientation/consciousness: patient oriented x3 Limitations: no limitations HENMT: Head: normal to inspection Ears: external ears normal Face/Nose/Sinus: Normal external nose present, Normal nares present, normal facial exam, No erythema and No edema Face and sinus: normal facial exam, no erythema and no edema Mouth: Yes Normal oral and palatal mucosa present Eyes: General: appearance normal, both eyes and all related structures Neck: Neck: normal visual inspection, full ROM and no meningeal signs Lymphatic: no lymphadenopathy noted and no
== END 2023-09-27 11:12 | disposition home or self-care (01) ==
PROVIDERS: Emergency Provider Nurse Practitioner Family; PCP Internal Medicine
DX: L03.113 Cellulitis of right upper limb (principal); I10 Essential (primary) hypertension
CPT/HCPCS: 99213; G0463

== ENCOUNTER 2023-12-25 01:58 | Day surgery (SDC) | payer MEDICARE, SELFPAY ==
[2023-12-20 15:27] VITALS: BMI 28.6
--- NOTE | 2023-12-20 15:44 | PC.NURSE ---
Report to the Outpatient Waiting Room, entrance under the green pavilion located off [facility], at time _8:30AM__ on date _12/25/23____. Planned Procedure Time: __10:30AM .? Time changes happen often and if your time is changed the preop area will call you the afternoon before. - You and your visitor will be asked to self-screen and do not enter if you have any COVID symptoms. Please call surgeon if you need to reschedule. - A mask is optional within the hospital at this time. Patients may have clear liquids (water, carbonated beverages, clear teas, apple juice) until 3 hours prior to surgery with a maximum of 20 ounces. - No food from midnight until time of surgery and no smoking - Infants may have breast milk until 4 hours before surgery, infant formula 6 hours prior to surgery. - Children will be allowed to drink immediately following surgery.? If applicable, please bring a bottle or sippy cup to assist with drinking. Juice, water, soda, and popsicles are readily available.? For infants on formula, please bring formula the day of surgery.? Pacifiers are allowed. Take only the following medications with a SIP of water on the morning of surgery: ____AMLODIPINE, NEBIVOLOL DO NOT STOP ANY OF YOUR OTHER PRESCRIPTION MEDICATIONS PRIOR TO SURGERY EXCEPT THE FOLLOWING Medications to discontinue per physician ____NONE Date to take last dose Please no make-up, nail nepali, hairspray, perfume, deodorant, or body powder the day of surgery.? No jewelry (including any body piercings) or valuables the day of surgery, leave them at home.? Please take a shower or bath the night before, or the morning of, surgery with an antibacterial soap.? Wear comfortable, loose fitting clothing.? Children are encouraged to wear pajamas. - Jewelry must be removed prior to entering the operating room.? Rings and piercings that are not removed may be cut off. - The hospital will not accept responsibility for valuables.? - Please leave all valuables, including medications, at home the day of surgery. If you are going home after surgery, a licensed flag car driver must drive you home.? - NO public transportation without another adult if you receive anesthesia. - We recommend that an adult stay with you for 24 hours following discharge. - We also recommend that you do not drive, make important decision, drink alcoholic beverages, or take any drugs that were not prescribed by your health care provider for at least 24 hours after your discharge time. For Pediatric surgeries, we recommend two adults accompany the child home. Follow any additional instructions given to you from your surgeon. Telephone instructions given to PATIENT and asked if any additional questions and then verbalized understanding. Patient advised to call surgeon office or pre surgery nurse liaison [phone] if any additional questions.
[2023-12-25] VITALS (8 sets, daily range): BP systolic 153–183; BP diastolic 74–92; PULSE 54–73; RESP 12–20; TEMP 36.6; O2SAT 95–100
[2023-12-25] MEDS: LACTATED RINGERS 1,000 ML 30 ML IV CONT (08:50)
--- NOTE | 2023-12-25 09:31 | WPDHPUPDATE1 ---
History and Physical Update Update Date/Time: 12/25/23 09:31 History and Physical has been reviewed, including an updated exam of the patient. There are NO changes in the patient's condition. Risks, benefits, and alternatives have been discussed and questions answered. Patient agrees to proceed with procedure. Proceed with circumcision
--- NOTE | 2023-12-25 10:23 | WPDANESEPPF ---
Anes - Initial Pre Proc Eval Procedure: Operation Date: 12/25/23 10:30 Proposed Procedures p Circumcision - Geo Tao MD Date/Time: 12/25/23 10:23 Surgeon: Geo Tao MD Pre Op Diagnosis: Phimosis, Bladder Ca Patient Data Age: 83 Gender: M Height: 1.7 m Weight: 81.5 kg Last Vital Signs Temp 97.8 F 12/25/23 09:10 Pulse 66 12/25/23 09:10 Resp 18 12/25/23 09:10 BP 158/74 H 12/25/23 09:10 Pulse Ox 99 12/25/23 09:10 O2 Del Method Room Air 12/25/23 09:10 Allergies Allergy/AdvReac Type Severity Reaction Status Date / Time No Known Allergies Allergy Verified 12/25/23 09:08 Home Medications Medication Instructions Recorded Confirmed Type nebivolol 10 mg tablet 10 mg PO DAILY #30 tabs 07/24/23 12/25/23 Rx amlodipine 5 mg tablet 5 mg PO DAILY 09/27/23 12/25/23 History lisinopril 40 mg tablet 40 mg PO DAILY #90 tabs 12/21/23 12/25/23 Rx Patient hx anesthesia problems: none Family hx anesthesia problems: none Results Review: All pre-operative results and documents have been reviewed as part of the pre-operative evaluation. [facility] Past Medical History Medical History Essential (primary) hypertension Family History Family History Mother Family history of Alzheimer's disease, Onset Age: 90 Patient's mother is Father Patient's father is Social History Social History Smoking packs per day: 0.2 Smoking cigarettes per day: 4.0 Years smoked: 5 Smoking pack-years: 1.00 Smoking status: Former smoker Tobacco type: cigarettes Second hand tobacco smoke exposure: No Smoking end date: 10/28/94 Additional smoking assessment comments: OCCAS SMOKED CIGARS IN PAST Alcohol intake: current Drinks per week: 2 Substance use: never Do You Feel Safe in your Home?: Yes Lack of Transportation: No Lack of Food: Never True Current Housing: I Have Housing Concerned About Future Housing: No Difficulty Paying Gas/Electric Bills: No Difficulty Paying for Meds: No Currently Unemployed: No Education: High School Diploma/GED Difficulty w/ Childcare or Family Care: No Living arrangements: with family Additional living arrangements comments: Spiritual care concerns: No Anes - Eval Final PreProcedure Day of Procedure 12/25/23 10:23 Patient weight: overweight Heart: regular rate and rhythm and murmur (2/6 at R sternal border. ) Lungs: clear to auscultation Airway: Mallampati scale class II Neurological: alert and oriented Last oral intake: >/= 8 hours ASA classification: III Emergent: no Anesthetic plan: proceed Anesthesia type and monitoring: general LMA and standard monitoring Results Review: All pre-operative results and documents have been reviewed as part of the pre-operative evaluation. HTN, mod by ECHO 2022, stable and without cp, sob, or orthopnea. Informed Consent: The patient's anesthetic plan and its attendant risks and benefits were discussed with the patient/family/POA. Questions were solicited and answers provided to the satisfaction of the patient/family/POA.
[2023-12-25] MEDS: ceFAZolin 2 GM/D5W 50 ML 2 GM/50 ML BAG IVPB (11:01)
[2023-12-25] MEDS: BUPivacaine HCL 0.5% PF 30 ML VIAL 20 ML INFILTRATE (11:47)
--- NOTE | 2023-12-25 11:53 | W.PM.PROC2 ---
Procedure Note - Detailed Date of Procedure 12/25/23 Pre-op Diagnosis Phimosis, Post-op Diagnosis Same Procedure Performed circumcision Surgeon Geo Tao MD Anesthesia General Description of Procedure The patient is brought to the operative suite areas prepped and draped in a routine sterile fashion while in a supine position. The lines of circumcision are outlined using a sterile marking pen. 2 circumferential circumcising incisions were made and carried down to Colle's fascia. The penile foreskin is circumferentially excised. Hemostasis is obtained with electric cautery. The edges of the penile skin reapproximated using a combination of running and interrupted 4-0 chromic. A penile block is administered at the base of the penis with 0.25% bupivacaine. The patient was taken to the recovery room in good condition. EBL was approximately 5cc. Estimated Blood Loss 5 Drains No Packing No Pathology Yes Complications No immediate complications Condition Stable Disposition PACU
== END 2023-12-25 13:35 | disposition home or self-care (01) ==
PROVIDERS: PCP Internal Medicine; Visit Provider Urology
PROC: (CPT 54161; principal; 2023-12-25 10:30)
DX: N47.1 Phimosis (principal); N52.01 Erectile dysfunction due to arterial insufficiency; Z85.51 Personal history of malignant neoplasm of bladder
CPT/HCPCS: 54161; 88304; A9270; J0690; J1100; J2405; J2704; J3010; J7120

== ENCOUNTER 2024-04-17 11:24 | Outpatient (CLI) | payer MEDICARE, SELFPAY ==
--- NOTE | ~2024-04-17 | XR_ITS ---
Right Humerus Technique: AP and lateral views were obtained. Clinical History: Pain Findings: No fracture or dislocation is seen. Osseous alignment is anatomic. Visualized joint spaces are grossly preserved. Soft tissues are unremarkable. Impression: Unremarkable examination. No fracture or dislocation. Reviewed, dictated and finalized at location . DEVELOPER Impression: Unremarkable examination. No fracture or dislocation.
--- NOTE | ~2024-04-17 | XR_ITS ---
Right Shoulder Technique: AP and scapular Y views were obtained. Clinical History: Pain Findings: No fracture or dislocation is seen. Osseous alignment is anatomic. The glenohumeral and acr omioclavicular joint spaces are preserved. Soft tissues are unremarkable. Impression: Unremarkable right shoulder radiographs. Reviewed, dictated and finalized at [facility]. CULTURAL EQUIPMENT OPERATOR Impression: Unremarkable right shoulder radiographs.
== END 2024-04-17 11:25 | disposition home or self-care (01) ==
PROVIDERS: PCP Internal Medicine; Visit Provider Internal Medicine
DX: M25.512 Pain in left shoulder (principal); M79.621 Pain in right upper arm; W19.XXXA Unspecified fall, initial encounter
CPT/HCPCS: 73030; 73060

== ENCOUNTER 2024-12-17 11:39 | Emergency (ER) | payer MEDICARE, SELFPAY ==
[2024-12-17 11:40] VITALS: BP 145/76; PULSE 77; RESP 28; TEMP 36.1; O2SAT 98
[2024-12-17] MEDS: ASPIRIN 81 MG CHEWABLE TABLET 324 MG PO (11:47)
--- NOTE | 2024-12-17 11:55 | ECG_ITS ---
Test Date: 2024-12-17 12:50:28 Measurements Intervals [place] Rate: 64 P: 0 TX: 201 QRS: -6 QRSD: 113 T: 37 QT: 460 QTc: 475 Interpretive Statements SINUS RHYTHM BORDERLINE AV CONDUCTION DELAY INTRAVENTRICULAR CONDUCTION DELAY LEFT VENTRICULAR HYPERTROPHY AND ST-T CHANGE BORDERLINE ECG Compared to ECG 12/17/2024 11:44:34 NO SIGNIFICANT CHANGE Electronically Signed On 12-17-2024 13:33:13 CDT by Darnell Mccrary D.O.
--- NOTE | 2024-12-17 11:56 | ED.DIZZY ---
HPI - Dizziness General Stated Complaint: fainting, heavy breathing History of Present Illness HPI Narrative: Patient is an 84 year old male, past medical history significant for hypertension, on nebivolol, amlodipine and lisinopril, presents to [facility] via POV with his transporting with acute onset dizziness, diaphoresis and nausea while he was out shopping with his spouse. He denies a sensation of spinning but rather reports that he feels unsteady. He denies chest pain, some shortness of breath, denies focal motor weakness. He had breakfast this morning for usual, he denies known sick contacts, has no history of cardiac events, he does not take anticoagulants or an aspirin daily, denies black or tarry stools, no modifying factors were attempted prior to arrival. Patient has history 1 similar incident approximately 1 year ago wear he became acutely dizzy and diaphoretic at home the lasted a short time and self resolved. Related Data Home Medications ?Medication ?Instructions ?Recorded ?Confirmed ?Last Taken ?Type amlodipine 5 mg tablet 5 mg PO DAILY 09/27/23 08/15/24 Unknown History cyanocobalamin (vitamin B-12) 100 100 mcg PO DAILY 08/15/24 08/15/24 Unknown History mcg tablet Allergies Allergy/AdvReac Type Severity Reaction Status Date / Time No Known Allergies Allergy Verified 08/15/24 08:47 Review of Systems Constitutional: Constitutional: Reports as per HPI Cardiovascular: Cardiovascular: Reports as per HPI [facility] Past Medical History Medical History Rib pain on right side Encounter for screening for malignant neoplasm of prostate Bloody stools Annual physical exam BMI 27.0-27.9,adult Essential (primary) hypertension Family History Family History (Updated 08/15/24 @ 08:51 by ILIANA Harrington) Mother Family history of Alzheimer's disease, Onset Age: 90 Father Diabetes mellitus, Onset Age: 69 failure to thrive after a fall. Sibling Brain cancer Social History Social History (Updated 08/15/24 @ 08:52 by ILIANA Harrington) Smoking packs per day: 0.2 Smoking cigarettes per day: 4.0 Years smoked: 5 Smoking pack-years: 1.00 Smoking status: Former smoker Tobacco type: cigarettes Second hand tobacco smoke exposure: Yes Smoking end date: 10/28/94 Additional smoking assessment comments: OCCAS SMOKED CIGARS IN PAST Alcohol intake: current Drinks per week: 2 Substance use: never Substance use type: does not use Do You Feel Safe in your Home?: Yes Lack of Transportation: No Lack of Food: Never True Current Housing: I Have Housing Concerned About Future Housing: No Difficulty Paying Gas/Electric Bills: No Difficulty Paying for Meds: No Currently Unemployed: No Education: High School Diploma/GED Difficulty w/ Childcare or Family Care: No Living arrangements: with family Additional living arrangements comments: Occupation/Education: retired 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[employer] Gender identity (if verbalized by the patient): Male Spiritual care concerns: No Exam Const: General: cooperative, healthy appearing, comfortable and no acute distress Nutritional Appearance: average body habitus Orientation/consciousness: oriented to person, oriented to place, oriented to time and patient oriented x3 HENMT: Head: normal to inspection, No palpable skull fracture present and normocephalic Ears: hearing grossly normal bilaterally, external ears normal and TM's normal bilaterally Face/Nose/Sinus: Normal external nose present and Normal nares present Face and sinus: normal facial exam, sinuses nontender and face symmetric Eyes: General: appearance normal, both eyes and all related structures Neck: Neck: normal visual inspection, full ROM, no lymphadenopathy and no meningeal signs Thyroid: thyroid normal Resp: Effort & Inspection: normal respiratory effort and able to speak in complete sentences Cardio: Jugular venous distension: no JVD Palpation: normal PMI Rate: regular rate Heart sounds: S1 normal heart sound present and S2 normal heart sound present GI: Other: ventral hernia, only noted when patient is flexing abdomen wall, not palpable otherwise, active vomiting, clear with food particles, no hematemesis or coffee-grounds noted Skin: Other: patient is extremely diaphoretic, slightly pale in color Neuro: General: oriented to person, oriented to place, oriented to time, patient oriented x3, no meningeal signs, no focal motor deficits, CN's II-XI intact bilaterally and other ( patient has no focal motor weakness, NIHSS 0) Other: does have some shaking movements with intentional position changes, he is very weak and requires 2 person assist to stand, pivot and sit in a wheelchair from his vehicle and then again from the wheelchair to the cot in the exam room Course Course Emergency Course: patient is acutely diaphoretic, acutely symptomatic with dizziness and active vomiting. his EKG shows some ST depression in the V4 through V6. No ST elevation noted. 911 was contacted and EMS arrived at bedside. Patient's vital signs are stable, Accu-Chek is in the 123. He is given 4 baby aspirin, an IV is established and he departed the facility with EMS transporting. It is peak EMS discretion where patient will transport from here, closest facility is [facility] versus [facility] in [place]. Level of Care: Express Care Visit ([id number]) Vital Signs Vital signs: Vital Signs Temperature 36.1 C L 12/17/24 11:40 Pulse Rate 77 12/17/24 11:40 Respiratory Rate 28 H 12/17/24 11:40 Blood Pressure 145/76 H 12/17/24 11:40 Pulse Oximetry 98 12/17/24 11:40 Oxygen Delivery Room Air 12/17/24 11:40 Temperature 36.1 C L 12/17/24 11:40 Pulse Rate 77 12/17/24 11:40 Respiratory Rate 28 H 12/17/24 11:40 Blood Pressure 145/76 H 12/17/24 11:40 Pulse Oximetry 98 12/17/24 11:40 Oxygen Delivery Room Air 12/17/24 11:40 Discharge Plan Discharge Clinical Impression: Dizziness, Diaphoresis Vomiting Qualifiers: Vomiting type: unspecified Nausea presence: with nausea Qualified Code(s): R11.2 - Nausea with vomiting, unspecified Patient Disposition: Other Condition: Serious Instructions: Antibiotic Form Additional Instructions: patient departed with EMS via 911 surface, cooker soda discretion as to transport facility or patient will be treated further Patient Language: Lebanese Prescriptions: No Action amlodipine 5 mg tablet 5 mg PO DAILY Patient Comments: QAM cyanocobalamin (vitamin B-12) 100 mcg tablet 100 mcg PO DAILY nebivolol 10 mg tablet 10 mg PO DAILY Qty: 30 0RF Patient Comments: QAM lisinopril 40 mg tablet 40 mg PO DAILY Qty: 90 3RF Patient Comments: QAM Follow-up/Referrals: Eduardo Wilson DO [Primary Care Provider, Internal Medicine] Time of Disposition: 11:53
--- NOTE | 2024-12-17 12:06 | PC.NURSE ---
Blood sugar check 123 at 11:39 am.
--- OUTSIDE RECORDS SUMMARY | 2024-12-17 12:08 | XMS_ITS | Clinical Summary ---
Author Organization [facility] [address] Address [address] [place] [address] Care Team Providers Care Safety And Security Officer Name Role Phone Eduardo Wilson DO Primary Care Provider [phone] Allergies No known active allergies Medications lisinopriL (PRINIVIL,ZESTRIL ) 40 mg tablet Take 1 tablet (40 mg total) by mouth daily 04/11/2024 Active nebivoloL (BYSTOLIC) 10 mg tabletIndications :Essential hypertension TAKE 1 TABLET BY MOUTH EVERY DAY 90 tablet 3 07/23/2024 Active amLODIPine (NORVASC) 5 mg tablet TAKE 1 TABLET (5 MG TOTAL) BY MOUTH DAILY. 90 tablet 3 07/23/2024 07/24/19 Active Active Problems Problem Noted Date Diagnosed Date LAE (left atrial enlargement) 05/15/2024 BPH with urinary obstruction 07/20/2023 Essential hypertension 04/24/2023 Nonrheumatic aortic (valve) stenosis 04/24/2023 Pre-syncope 04/24/2023 Surgical History Surgery Date Site/Laterality Comments HERNIA REPAIR Medical History Medical History Date Comments Hypertension Syncope Aortic stenosis BPH (benign prostatic hyperplasia) Family History Medical History Relation Name Comments Heart attack Father Relation Name Status Comments Father Mother Social History Tobacco Use Types Packs/Day Years Used Date Smoking Tobacco: Former Cigarettes Pipe Smokeless Tobacco: Former Chew Tobacco Cessation:Counseling Given: Not Answered Sex and Gender Information Value Date Recorded Sex Assigned at Not on file Legal Sex Male 1:16 PM PRIVATE TUTOR Gender Identity Not on file Sexual Orientation Not on file Obstetrics History Last Filed Vital Signs Vital Sign Reading Time Taken Comments Blood Pressure 130/80 05/15/2024 8:22 AM PRIVATE TUTOR Pulse 74 05/15/2024 8:22 AM PRIVATE TUTOR Temperature - - Respiratory Rate - - Oxygen Saturation 97% 05/15/2024 8:22 AM PRIVATE TUTOR Inhaled Oxygen Concentration - - Weight 82.1 kg (181 lb) 05/15/2024 8:22 AM PRIVATE TUTOR Height 170.2 cm (5' 7) 05/15/2024 8:22 AM PRIVATE TUTOR Body Mass Index 28.35 05/15/2024 8:22 AM PRIVATE TUTOR Plan of Treatment Health Maintenance Due Date Last Done Comments Depression Screening 1942 Fall Risk Assessment 1940 Hepatitis B Screening 01/28/1960 Zoster Vaccine (1 of 2) 01/28/1992 Well Visit 65+ 2007 Covid-19 Vaccine (2023-2 5 season) 2023 02/15/2023, 01/30/2022, 02/22/2021, Additional history exists Influenza Vaccine (#1) 2024 , 01/30/2022, 02/18/2021, Additional history exists DTaP/Tdap/Td Vaccine (2 - Td or Tdap) 03/28/2032 03/28/2022, 02/18/2007 Pneumococcal vaccine 65+ Completed 02/18/2021, 12/30 [place] [address] [facility] MEDICARE ADVANTAGE Care Teams Safety And Security Officer Relationship Specialty Start Date End Date Eduardo Wilson DO [address] [address] PCP - General Internal Medicine 05/15/24
--- NOTE | 2024-12-17 12:10 | ED.PROGRESS ---
Subjective Date/time seen: 12/17/24 12:10 Interval history: EKG interpretation: Normal sinus rhythm, heart rate 75 beats per minute, normal DC interval, QRS 110 milliseconds, QT 450 milliseconds, QTC 443 milliseconds, there is ST depression V3 V4 V5 V6, some artifact present, T-wave inversion in lead 2, no ST elevation, no ectopy Objective Data Vital Signs Vital Signs: Vital Signs - 24 hr 12/17/24 11:40 Temperature 36.1 C L Pulse Rate 77 Respiratory Rate 28 H Blood Pressure 145/76 H Pulse Oximetry 98 Oxygen Delivery Room Air
== END 2024-12-17 11:53 | disposition short-term general hospital (02) ==
PROVIDERS: Emergency Provider Nurse Practitioner Family; PCP Internal Medicine
DX: R42 Dizziness and giddiness (principal); R61 Generalized hyperhidrosis; R11.2 Nausea with vomiting, unspecified; I10 Essential (primary) hypertension; Z87.891 Personal history of nicotine dependence
CPT/HCPCS: 82948; 93005; 99215; A9270; G0463

== ENCOUNTER 2024-12-17 12:24 | Emergency (ER) | payer MEDICARE, SELFPAY ==
[2024-12-17] VITALS (8 sets, daily range): BP systolic 143–167; BP diastolic 70–85; PULSE 60–66; RESP 13–18; TEMP 36.4; O2SAT 93–100
--- NOTE | ~2024-12-17 | XR_ITS ---
EXAMINATION: XR chest 2V 12/17/2024 13:15 INDICATION: Dizziness TECHNIQUE:Frontal and lateral images of the chest were obtained COMPARISON: 04/06/2023 FINDINGS: Cardiomediastinal silhouette is mildly enlarged. No pneumothorax. No pleural effusion. No focal pulmonary consolidation. There is a 5 mm calcified granuloma is possible. IMPRESSION: 1: NO ACUTE CARDIOPULMONARY DISEASE. Reviewed, dictated and finalized at location A.
--- NOTE | ~2024-12-17 | CT_ITS ---
EXAMINATION: CT brain wo con DATE: 12/17/2024 14:54 INDICATION: Dizziness TECHNIQUE: Computed tomography (CT) of the head was performed without intravenous contrast. Sagittal and coronal reconstructions were performed. The mA was adjusted according to patient size. Iterative reconstruction technique was employed. The dose-length product was 605.33 mGy-cm. COMPARISON: 04/06/2023 FINDINGS: Unchanged old lacunar infarcts in the bilateral subinsular white matter. No acute intracranial hemorrhage, acute infarction or abnormal extra axial fluid collection. There is moderate scattered white matter hypoattenuation consistent with chronic small vessel ischemic disease. Symmetric prominence of the sulci consistent with mild age-appropriate diffuse cerebral volume loss. Ventricles are normal and symmetric. No mass/mass effect. The orbits, paranasal sinuses and mastoid air cells are normal. IMPRESSION: 1. 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 No acute intracranial process. 2. Age-related changes including mild diffuse volume loss and moderate scattered white matter attenuation consistent with chronic small vessel ischemic disease. Reviewed, dictated and finalized at location A. IMPRESSION: 1. 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 No acute intracranial process. 2. Age-related changes including mild diffuse volume loss and moderate scattere d white matter attenuation consistent with chronic small vessel ischemic diseas e.
--- NOTE | 2024-12-17 12:40 | ECG_ITS ---
Test Date: 2024-12-17 11:44:34 Measurements Intervals [place] Rate: 75 P: -44 IN: 160 QRS: 24 QRSD: 110 T: 31 QT: 415 QTc: 464 Interpretive Statements SINUS RHYTHM INTRAVENTRICULAR CONDUCTION DELAY ST-T WAVE ABNORMALITY IN ANTEROLAT/INF LEADS- CONSIDER ISCHEMIA BASELINE ARTIFACT- II, III, AVR, AVL, AVF, V3-V6 ABNORMAL ECG No previous ECG available for comparison Electronically Signed On 12-17-2024 13:32:24 CDT by Darnell Mccrary D.O.
--- OUTSIDE RECORDS SUMMARY | 2024-12-17 13:09 | XMS_ITS | Clinical Summary ---
Author Organization [facility] [address] Address [address] [place] [address] Care Team Providers Care Training And Development Director Name Role Phone Eduardo Wilson DO Primary Care Provider Allergies No known active allergies Medications lisinopriL [...] on file Legal Sex Male 1:16 PM WEAVER HAND Gender Identity Not on file Sexual Orientation Not on file Obstetrics History Last Filed Vital Signs Vital Sign Reading Time Taken Comments Blood Pressure 130/80 05/15/2024 8:22 AM WEAVER HAND Pulse 74 05/15/2024 8:22 AM WEAVER HAND Temperature - - Respiratory Rate - - Oxygen Saturation 97% 05/15/2024 8:22 AM WEAVER HAND Inhaled Oxygen Concentration - - Weight 82.1 kg (181 lb) 05/15/2024 8:22 AM WEAVER HAND Height 170.2 cm (5' 7) 05/15/2024 8:22 AM WEAVER HAND Body Mass Index 28.35 05/15/2024 8:22 AM WEAVER HAND Plan of Treatment Health Maintenance Due Date [...] Pneumococcal vaccine 65+ Completed 02/18/2021, 12/30 [place] [address] [facility] MEDICARE ADVANTAGE Care Teams Training And Development Director Relationship Specialty Start Date End Date Eduardo Wilson DO [address] [address] PCP - General Internal Medicine 05/15/24
[2024-12-17 13:21] LABS: Alanine Aminotransferase 24 U/L (6-50); Albumin Level 4.0 g/dL (3.5-5.1); Alkaline Phosphatase 61 U/L (38-126); Anion Gap 11 mmol/L (4-12); Aspartate Amino Transferase 26 U/L (17-59); Bilirubin,Total 0.6 mg/dL (0.2-1.3); Blood Urea Nitrogen 18 mg/dL (9-20); Calcium 9.0 mg/dL (8.4-10.2); Carbon Dioxide 21 mmol/L (22-30); Chloride 103 mmol/L (98-107); Estimated CRCL calculation 59 ml/min; Estimated Glomerular Filt Rate > 60; Glucose 141 mg/dL (65-110); Potassium 3.5 mmol/L (3.4-5.0); Sodium 135 mmol/L (137-145); Total Protein 7.1 g/dL (6.3-8.2)
[2024-12-17 13:35] LABS: Hematocrit 40.4 % (42.0-52.0); Hemoglobin 13.5 g/dL (14.0-18.0); Immature Granulocyte Percent A 0.5 % (0-0.5); Lymphocytes Absolute Auto 1.45 K/mm3 (0.9-3.2); Mean Corpuscular HGB Conc 33.4 g/dl (32-36); Mean Corpuscular Hemoglobin 30.3 pg (26-34); Mean Corpuscular Volume 90.6 fl (80-100); Nucleated Red Blood Cells Absolute Auto 0.000 K/mm3 (0.0-0.012); Nucleated Red Blood Cells Perc 0.0 % (0.0-0.2); Platelet Count Result 273 k/mm3 (150-375); Red Blood Count 4.46 M/mm3 (4.6-6.20); White Blood Count 12.9 K/mm3 (4.5-10.0)
--- NOTE | 2024-12-17 14:43 | PC.NURSE ---
Pt to CT.
--- NOTE | 2024-12-17 15:18 | ED.DIZZY ---
HPI - Dizziness General Chief Complaint: Dizziness Stated Complaint: weakness, dizzy, nausea Time Seen by Provider: 12/17/24 12:57 History of Present Illness HPI Narrative: 84-year-old with a history of hypertension was brought in from [facility] by EMS with the complaints of dizziness .pt states he was shopping and all of a sudden became dizzy and diaphoretic , he denied having chest pain , SOB , WEEMS , abdominal pain .Upon arrival to ER he feels better. Pt states he had similar episode 1 yr ago, elicited complaint: dizziness Onset (ago): hour(s) (1) Severity: moderate Description: sense of movement and lightheadedness History of similar symptoms: Yes Exacerbating factors: nothing Relieving factors: nothing Associated symptoms: nausea Related Data Home Medications ?Medication ?Instructions ?Recorded ?Confirmed ?Last Taken ?Type amlodipine 5 mg tablet 5 mg PO DAILY 09/27/23 08/15/24 Unknown History cyanocobalamin (vitamin B-12) 100 100 mcg PO DAILY 08/15/24 08/15/24 Unknown History mcg tablet Allergies Allergy/AdvReac Type Severity Reaction Status Date / Time No Known Allergies Allergy Verified 12/17/24 13:12 Review of Systems Review of Systems: All systems reviewed & are unremarkable except as noted in HPI and below Constitutional: Constitutional: Reports no additional constitutional complaints Eyes: Eyes: Reports no additional eye complaints ENT: Reports system reviewed and no additional complaints, except as documented Cardiovascular: Cardiovascular: Reports no additional cardiovascular complaints Respiratory: Respiratory: Reports no additional respiratory complaints Gastrointestinal: Gastrointestinal: Reports no additional gastrointestinal complaints Musculoskeletal: Musculoskeletal: Reports no additional musculoskeletal complaints Neurologic: Reports as per HPI [facility] Past Medical History Medical History Rib pain on right side Encounter for screening for malignant neoplasm of prostate Bloody stools Annual physical exam BMI 27.0-27.9,adult Essential (primary) hypertension Family History Family History Mother Family history of Alzheimer's disease, Onset Age: 90 Father Diabetes mellitus, Onset Age: 69 failure to thrive after a fall. Sibling Brain cancer Social History Social History Smoking packs per day: 0.2 Smoking cigarettes per day: 4.0 Years smoked: 5 Smoking pack-years: 1.00 Smoking status: Former smoker Tobacco type: cigarettes Second hand tobacco smoke exposure: Yes Smoking end date: 10/28/94 Additional smoking assessment comments: OCCAS SMOKED CIGARS IN PAST Alcohol intake: current Drinks per week: 2 Substance use: never Substance use type: does not use Do You Feel Safe in your Home?: Yes Lack of Transportation: No Lack of Food: Never True Current Housing: I Have Housing Concerned About Future Housing: No Difficulty Paying Gas/Electric Bills: No Difficulty Paying for Meds: No Currently Unemployed: No Education: High School Diploma/GED Difficulty w/ Childcare or Family Care: No Living arrangements: with family Additional living arrangements comments: Occupation/Education: retired 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 HEAD: Normocephalic, atraumatic. EYES: PERRLA and EOMI. ENT: Nares clear, no rhinorrhea or epistaxis. Mucous membranes moist. NECK: Supple. CHEST: Clear to auscultation. No respiratory distress. HEART: Regular rate and rhythm. No murmur heard. Normal peripheral pulses. ABDOMEN: Soft, nontender, nondistended, normal active bowel sounds. EXTREMITIES: Normal range of motion. No edema. SKIN: Warm, dry, no rash. NEURO: No focal deficits. Alert and oriented x3. PSYCH: Normal mood and affect. Course Course Emergency Course: Patient remained asymptomatic while he was here in the ER. I discussed lab work, CT and EKG findings with him and his . He feels fine going home. Advised him to drink plenty fluids, rest, follow-up with his primary doctor Vital Signs Vital signs: Vital Signs Temperature 36.4 C 12/17/24 12:25 Pulse Rate 60 12/17/24 12:25 Respiratory Rate 13 12/17/24 12:25 Blood Pressure 163/70 H 12/17/24 12:25 Pulse Oximetry 93 12/17/24 12:25 Oxygen Delivery Nasal Cannula 12/17/24 12:25 Oxygen Flow Rate 2 12/17/24 12:25 Temperature 36.4 C 12/17/24 12:25 Pulse Rate 66 12/17/24 14:01 Respiratory Rate 14 12/17/24 14:01 Blood Pressure 156/84 H 12/17/24 14:01 Pulse Oximetry 99 12/17/24 14:13 Oxygen Delivery Room Air 12/17/24 14:13 Oxygen Flow Rate 2 12/17/24 12:25 MDM - Dizziness Differential Diagnosis Differential diagnosis: Likely orthostatic hypotension, vertebral basilar insufficiency and cerebrovascular accident Medical Records Attestation: I reviewed the patient's medical records. Lab Data Attestation: I reviewed the patient's lab results. 12/17/24 12:46 12/17/24 12:46 Labs: Lab Results 12/17/24 12/17/24 Range/Units 12:46 12:53 WBC 12.9 H (4.5-10.0) K/mm3 RBC 4.46 L (4.6-6.20) M/mm3 Hgb 13.5 L (14.0-18.0) g/dL Hct 40.4 L (42.0-52.0) % MCV 90.6 (80-100) fl MCH 30.3 (26-34) pg MCHC 33.4 (32-36) g/dl RDW 13.5 (11.5-14.5) % Plt Count 273 (150-375) k/mm3 MPV 9.9 (7.4-10.4) fl Immature Gran % (Auto) 0.5 (0-0.5) % Neut % (Auto) 80.5 H (45.5-73.1) % Lymph % (Auto) 11.3 L (18.3-44.2) % Hayes % (Auto) 6.4 (2.6-8.5) % Eos % (Auto) 0.9 (0-4.4) % Baso % (Auto) 0.4 (0.2-1.2) % Lymph # (Auto) 1.45 (0.9-3.2) K/mm3 Hayes # (Auto) 0.8 H (0.1-0.6) K/mm3 Eos # (Auto) 0.1 (0-0.3) K/mm3 Baso # (Auto) 0.1 (0.0-0.1) K/mm3 Abs Immat Gran (auto) 0.07 H (0.00-0.031) K/mm3 Absolute Neuts (auto) 10.4 H (1.3-6.7) K/mm3 Absolute Nucleated RBC 0.000 (0.0-0.012) K/mm3 Nucleated RBC % 0.0 (0.0-0.2) % Sodium 135 L (137-145) mmol/L Potassium 3.5 (3.4-5.0) mmol/L Chloride 103 (98-107) mmol/L Carbon Dioxide 21 L (22-30) mmol/L Anion Gap 11 (4-12) mmol/L BUN 18 (9-20) mg/dL Creatinine 0.86 (0.7-1.3) mg/dL Estim Creat Clear Calc 59 ml/min Estimated GFR > 60 (59 - ) Glucose 141 H (65-110) mg/dL POC Capillary Glucose 134 H (65-105) mg/dl Calcium 9.0 (8.4-10.2) mg/dL Total Bilirubin 0.6 (0.2-1.3) mg/dL AST 26 (17-59) U/L ALT 24 (6-50) U/L Alkaline Phosphatase 61 (38-126) U/L Total Protein 7.1 (6.3-8.2) g/dL Albumin 4.0 (3.5-5.1) g/dL Imaging Data Radiologist's impression: ITS Impressions Chest X-Ray 12/17/24 13:18 IMPRESSION: 1: NO ACUTE CARDIOPULMONARY DISEASE. Head CT 12/17/24 14:59 IMPRESSION: 1. 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 No acute intracranial process. 2. Age-related changes including mild diffuse volume loss and moderate scattered white matter attenuation consistent with chronic small vessel ischemic disease. ECG Data EKG #1: ECG completion date: 12/17/24 ECG completion time: 12:50 EKG Interpretation: normal rate (64), sinus rhythm, no ectopy, no ST changes and normal QRS Discharge Plan Discharge Clinical Impression: Dizziness Patient Disposition: Home Condition: Stable Instructions: Dizziness (ED) Additional Instructions: continue home medications , follow with your doctor . Patient Language: Filipino Prescriptions: No Action amlodipine 5 mg tablet 5 mg PO DAILY Patient Comments: QAM cyanocobalamin (vitamin B-12) 100 mcg tablet 100 mcg PO DAILY nebivolol 10 mg tablet 10 mg PO DAILY Qty: 30 0RF Patient Comments: QAM lisinopril 40 mg tablet 40 mg PO DAILY Qty: 90 3RF Patient Comments: QAM Follow-up/Referrals: Eduardo Wilson DO [Primary Care Provider, Internal Medicine] Time of Disposition: 15:19
== END 2024-12-17 16:01 | disposition home or self-care (01) ==
PROVIDERS: Emergency Medicine; Emergency Provider Family Medicine; PCP Internal Medicine
DX: R42 Dizziness and giddiness (principal); I10 Essential (primary) hypertension; Z87.891 Personal history of nicotine dependence; I45.9 Conduction disorder, unspecified; R94.31 Abnormal electrocardiogram [ECG] [EKG]
CPT/HCPCS: 36415; 70450; 71046; 80053; 82948; 85025; 93005; 99284; A9270